=== PATIENT | male | born 1990 | race Hispanic/Latino ===

== ENCOUNTER 2019-04-19 12:06 | Emergency (ER) | payer OTHER ==
[~2019-04-19] VITALS: Ht 170.2 cm; Wt 102.1 kg
--- NOTE | 2019-04-20 11:55 | EKG ---
[facility] [address] [place], [place] [address] Signed Normal sinus rhythm Normal ECG No previous ECGs available Confirmed by MARIA R MATHEW DO ([id number]) on 04/20/2019 11:55:52 AM Electronically Signed By: MARIA R MATHEW DO 04/20/19 1155 PATIENT NAME: AUNG CHAPMAN Electrocardiogram DATE OF : 88 PHYSICIAN: MARIA R MATHEW DO REPORT #: [id number] REPORT IS CONFIDENTIAL AND NOT TO BE RELEASED WITHOUT AUTHORIZATION
== END 2019-04-19 14:10 | disposition home or self-care (01) ==
LOC: ED 12:06
DX: R07.9 Chest pain, unspecified (principal); R42 Dizziness and giddiness
CPT/HCPCS: 36415; 80053; 84484; 85025; 99284-25

== ENCOUNTER 2019-08-16 09:58 | Emergency (ER) | payer OTHER ==
[~2019-08-16] VITALS: Ht 170.2 cm; Wt 102.1 kg
[2019-08-16] MEDS ORDERED: ONDANSETRON ODT8 MG PO (12:09)
[2019-08-16] MEDS ORDERED: NORCO 7.5-3251 EACH PO (12:09)
== END 2019-08-16 12:19 | disposition home or self-care (01) ==
LOC: ED 09:58
DX: S82.831A Other fracture of upper and lower end of right fibula, initial encounter for closed fracture (principal); W01.0XXA Fall on same level from slipping, tripping and stumbling without subsequent striking against object, initial encounter
CPT/HCPCS: 73610; 99283-25; A9270

== ENCOUNTER 2022-02-01 01:00 | Emergency (ER) | payer OTHER ==
[~2022-02-01] VITALS: Ht 170.2 cm; Wt 93.0 kg
[~2022-02-01 01:00] MED LIST: DICLOFENAC SODI75 MG PO; NORCO 7.5-3251 EACH PO; ONDANSETRON ODT8 MG PO
== END 2022-02-01 04:04 | disposition home or self-care (01) ==
LOC: ED 01:00
DX: H53.8 Other visual disturbances (principal)
CPT/HCPCS: 36415; 71046; 80053; 81001; 83690; 85025; 85379; 96360; 99284-25; J7030